=== PATIENT | female | born 1995 | race Caucasian/White ===

== ENCOUNTER 2021-09-17 03:10 | Emergency (ER) | payer OTHER ==
[~2021-09-17] VITALS: Ht 157.5 cm; Wt 102.7 kg
[2021-09-17] MEDS ORDERED: IOHEXOL 350 MG/ML 100 ML VIAL. IV ONE (03:45)
[2021-09-17] MEDS ORDERED: IV NORMAL SALINE 500ML 500 ML IV ONE (03:45)
[2021-09-17 03:48] LABS: BASO # 0.1 x10^3/uL (0.0-0.2); BASO % 1 % (0-3); EOS % 1 % (0-3); HEMOGLOBIN 14.1 g/dL (12.0-15.5); LYMPH # 0.4 x10^3/uL (1.0-4.8); LYMPH % 6 % (24-48); MEAN CORPUSCULAR HEMOGLOBIN 30 pg (25-35); MEAN CORPUSCULAR HGB CONC 35 g/dL (31-37); MEAN CORPUSCULAR VOLUME 86 fL (79-100); MONO % 14 % (0-9); NEUT # 5.6 x10^3uL (1.8-7.7); NEUT % 78 % (31-73); PLATELET COUNT 249 x10^3/uL (140-400); RED BLOOD COUNT 4.66 x10^6/uL (3.50-5.40); RED CELL DISTRIBUTION WIDTH 13.1 % (11.5-14.5); WHITE BLOOD COUNT 7.2 x10^3/uL (4.0-11.0)
--- NOTE | 2021-09-17 03:50 | PHYS DOC ---
Past History Past Medical History: No Pertinent History (PEBBLES YOO MD) Past Surgical History: (PEBBLES YOO MD) Alcohol Use: Rarely Drug Use: None (PEBBLES YOO MD) General Adult EDM: Chief Complaint: DIZZY/LIGHT HEADED HPI: HPI: Patient is a 26-year-old female coming in for chest tightness and lightheadedness. Patient states that it started when she was at work about 12 hours prior to arrival, patient was sitting in a meeting at work when it started. Patient states that prior to that she had had some cramping in her ri ght calf. Patient had a right ankle surgery about 6 months ago. Patient denies any medical history. She reports that she otherwise has been feeling well prior to the sudden onset of symptoms. Denies any stimulators. States her p.o. intake has been good. Denies any vomiting or diarrhea. (PEBBLES YOO MD) Review of Systems: Review of Systems: All other systems within normal limits except for as noted in the HPI (PEBBLES YOO MD) Current Medications: Current Meds: Current Medications Medications (Trade) Dose Ordered Sig/Jaret Start Time Stop Time Status Last Admin Dose Admin Sodium Chloride 500 ml @ 500 mls/hr 1X ONCE 09/17/21 03:45 09/17/21 04:44 (PEBBLES YOO MD) Allergies: Allergies: Allergies Coded Allergies Type Severity Reaction Last Updated Verified No Known Drug Allergies 07/02/16 No (PEBBLES YOO MD) Physical Exam: PE: Constitutional: Well developed, well nourished, no acute distress, non-toxic appearance. [] HENT: Normocephalic, atraumatic, bilateral external ears normal, nose normal. [] Eyes: PERRLA, conjunctiva normal, no discharge. [] Neck: No rigidity, supple, no stridor. [] Cardiovascular: Tachycardic, regular rhythm, brisk cap refill. Orthostatic vital signs [] Lungs & Thorax: Non labored symmetric respirations, no tachypnea or respiratory distress [] Abdomen: Soft, nondistended. Skin: Warm, dry, no erythema, no rash. [] Back: Unremarkable Extremities: No deformities, range of motion grossly intact, no lower extremity edema [] Neurologic: Alert and oriented X 3, no focal deficits noted. [] Psychologic: Affect normal, judgement normal, mood normal. [] (PEBBLES YOO MD) Current Patient Data: Vital Signs: Vital Signs Date Time Temp Pulse Resp B/P (MAP) Pulse Ox O2 Delivery O2 Flow Rate FiO2 09/17/21 03:38 101.4 95 17 132/82 (99) 98 Room Air 98.0 (PEBBLES YOO MD) EKG: EKG: Sinus tachycardia, heart rate 133, nonspecific changes which is RSR prime in lead I concerning for right heart strain [] (PEBBLES YOO MD) Radiology/Procedures: Radiology/Procedures: CT angio done, does not show any pneumonia or pulmonary embolism however there are limitations due to suboptimal contrast bolus [] (PEBBLES YOO MD) Heart Score: C/O Chest Pain: Yes HEART Score for Chest Pain: HEART Score for Chest Pain Response (Comments) Value History Slighlty/Non-Suspicious 0 ECG Nonspecific Repolarizatio 1 Age < 45 0 Risk Factors 1 or 2 Risk Factors 1 Troponin < Normal Limit 0 Total 2 Risk Factors: Risk Factors: DM, Current or recent (<one month) smoker, HTN, HLP, family history of CAD, obesity. Risk Scores: Score 0 - 3: 2.5% MACE over next 6 weeks - Discharge Home Score 4 - 6: 20.3% MACE over next 6 weeks - Admit for Clinical Observation Score 7 - 10: 72.7% MACE over next 6 weeks - Early Invasive Strategies (PEBBLES YOO MD) Course & Med Decision Making: Course & Med Decision Making Pertinent Labs and Imaging studies reviewed. (See chart for details) [] (PEBBLES YOO MD) Course & Med Decision Making Addendum by Dr. Jose Coreas at 0748: I took over care of patient from Dr. Reginaldo suh at 0600. I followed up with the patient's second troponin level which was normal. Patient given an additional liter of IV normal saline. Patient's heart rate has significantly improved after additional fluid administration. The patient was found to be positive for COVID-19. This appears to be the cause of the patient's current symptoms. The patient is in stable condition at this time and is appropriate for discharge. Given onset of symptoms yesterday, I have recommended that the patient remain in home quarantine and to continue supportive care measures including oral hydration, rest, and treatment of symptoms with [id number] medications as needed. The patient will need to remain in home quarantine for a minimum of 4 more days, then the patient may return to work after that time if fever free and acute symptoms have resolved but will need to wear a mask until a total of 10 days from onset of symptoms. Recommend follow-up with primary doctor in 1 week for reevaluation and recommend return to the emergency department for any worsening symptoms. Patient voiced understanding and in agreement with treatment plan. (JOSE COREAS MD) Dragon Disclaimer: Dragon Disclaimer: This electronic medical record was generated, in whole or in part, using a voice recognition dictation system. (PEBBLES YOO MD) Departure Departure: Impression: Primary Impression: COVID Disposition: HOME / SELF CARE / HOMELESS Condition: STABLE Referrals: PCP,UNKNOWN (PCP) Additional Instructions: You have been tested for or diagnosed with COVID-19. It is an infection caused by a new type of coronavirus. COVID-19 will cause cold-like or mild flu symptoms in most. It can cause more severe symptoms like problems breathing in some. There is no treatment for COVID-19. The body will clear the infection over time. Self-care will help to ease discomfort. Steps to Take: Self-Care Rest as needed. Healthy habits may help you feel better. Steps include: Choose healthy foods including fruits and vegetables. Drink water throughout the day. Get plenty of sleep each night. If you smoke, try to quit. It may ease breathing. Avoid alcohol. Keep Others Healthy The virus can spread to others. Droplets are released every time you sneeze or cough. The droplets can get into the mouth, nose, or eyes of people near you and lead to infection. To lower the chances of spreading COVID-19 to others: Stay at home until your doctor has said it is safe to leave. If you tested positive this will mean staying isolated until both of the following are true: At least 7 days have passed since the start of illness. You are free of fever for at least 72 hours without the use of medicine. During this time: - Avoid public areas, events, or transportation. Do not return to work or school until your doctor has said it is safe to do so. - Call ahead if you need to go to a medical center. Let them know you may have COVID-19. It will help them guide you where to go. They may also ask you to wear a facemask when you come to the office. - If you call for emergency medical services, let them know you may have COVID- 19. While at home: - Try to avoid close contact with others. Stay about 6 feet away. - If possible, spend most of your time in a separate room from others. - Use a face mask if you will be in close contact with others such as sharing a room or vehicle. - Have someone wipe down common surfaces in the home. Use household health care sanitary technician every day on areas like doorknobs, counters, or sinks. - Cough or sneeze into a tissue. Throw the tissue away right after use. If a tissue is not available, cough or sneeze into your elbow. - Wash your hands often. Wash them after sneezing or coughing. Use soap and water and wash for at least 20 seconds. Alcohol based hand grave cleaner can be used if soap and water is not available. - Do not prepare food for others. Avoid sharing personal items like forks, spoons, or toothbrushes. - Avoid close contact with pets while you are sick. There is no evidence of the virus passing to pets. This is a safety step until more is known about this virus. Isolation can be frustrating. Social interaction can help. Keep in touch with friends and family through phone and tech options. You can still interact with others in your home, just keep a safe distance of about 6 feet. Follow-up: Your doctors office will check in with you to see if there are any changes in your health. You may be asked to keep track of symptoms to share with them. They will also let you know when you are clear to be in public again. Problems to Look Out For: Contact your doctor if your recovery is not going as you expect. Get emergency care if you have problems such as: - Trouble breathing - Nonstop chest pain or pressure - Changes in awareness, confusion, or problems waking - Lips or face have bluish color - Worsening of symptoms If you think you have an emergency, call for emergency medical services right away. As taken from [facility] PEBBLES YOO MD September 17, 2021 03:49 JOSE COREAS MD September 17, 2021 07:51
[2021-09-17] MEDS ORDERED: CONTRAST GIVEN. MC PRN (04:00)
[2021-09-17 04:03] LABS: CALCIUM 9.1 mg/dL (8.5-10.1); CREATININE 0.8 mg/dL (0.6-1.0); POTASSIUM 3.7 mmol/L (3.5-5.1)
[2021-09-17 04:08] LABS: PREG TEST PT QUAL NEGATIVE (NEG)
[2021-09-17 04:10] LABS: ALBUMIN/GLOBULIN RATIO 1.2 (1.0-1.7); MAGNESIUM 1.8 mg/dL (1.8-2.4); PHOSPHORUS 2.4 mg/dL (2.6-4.7); TOTAL BILIRUBIN 0.6 mg/dL (0.2-1.0); TOTAL PROTEIN 7.4 g/dL (6.4-8.2)
[2021-09-17] MEDS ORDERED: ACETAMINOPHEN 500 MG TABLET PO ONE (04:45)
[2021-09-17 04:51] LABS: AMPHETAMINE/METHAMPHETAMINE NEG (NEG); BARBITURATES NEG (NEG); BENZODIAZEPINES NEG (NEG); CANNABINOIDS NEG (NEG); COCAINE NEG (NEG); METHADONE NEG (NEG); OPIATES NEG (NEG); PHENCYCLIDINE NEG (NEG)
[2021-09-17 04:56] LABS: BACTERIA,URINE 0 /HPF (0-FEW); CLARITY,URINE CLEAR; COLOR,URINE YELLOW; GLUCOSE,URINE NEG (NEG); NITRITE,URINE NEG (NEG); UROBILINOGEN,URINE 0.2 mg/dL (0.2 mg/dL); WBC,URINE OCC /HPF (0-4)
[2021-09-17 04:57] LABS: SQUAMOUS EPITHELIAL CELL,UR MOD /LPF
[2021-09-17] MEDS ORDERED: IV NORMAL SALINE 1,000ML 1,000 ML IV ONE ×2 (05:00→06:30)
[2021-09-17 05:33] LABS: INFLUENZA A PATIENT NEGATIVE (NEGATIVE); INFLUENZA B PATIENT NEGATIVE (NEGATIVE)
[2021-09-17] MEDS ORDERED: KETOROLAC 15 MG/ML VIAL. IVP ONE (06:00)
[2021-09-17 07:42] VITALS: BP 113/70
--- NOTE | 2021-09-17 09:42 | RAD ---
PQRS Compliance Statement: One or more of the following individualized dose reduction techniques were utilized for this examinat ion: 1. Automated exposure control 2. Adjustment of the mA and/or kV according to patient size 3. Use of iterative reconstruction technique Thorax\S\PE_CHEST (Adult) 09/17/2021 4:00 AM INDICATION: Chest pain, shortness of air. Dizziness COMPARISON: None available TECHNIQUE: Axial CT images of the chest were obtained after the intravenous administration of nonioni c contrast. Coronal and sagittal reformats are provided. Maximum intensity projection images of the t horacic vasculature are provided. FINDINGS: The thyroid gland is normal in appearance. There are no pathologically enlarged axillary, mediastinal or hilar lymph nodes. The heart size is within normal limits. No significant pericardial effusion. T horacic aorta is normal in course and caliber. There is suboptimal opacification of the pulmonary arterial system. There there are no filling defect s within the pulmonary arterial system to suggest acute or chronic pulmonary embolus. There are no suspicious solid noncalcified pulmonary nodules. There are no pulmonary infiltrates. The re are no pleural effusions. No pulmonary vascular congestion or pneumothorax. Visualized portions of the upper abdomen are within normal limits. No suspicious osseous lesions are visualized. IMPRESSION: There is no evidence for acute or chronic pulmonary embolism given limitations secondary to suboptima l contrast bolus. Electronically signed by: Eda Murdock MD (09/17/2021 4:36 AM) [facility]
== END 2021-09-17 08:00 | disposition home or self-care (01) ==
LOC: ER 03:10
DX: U07.1 COVID-19 (principal); R07.89 Other chest pain; R42 Dizziness and giddiness; Z98.890 Other specified postprocedural states
CPT/HCPCS: 36415; 71275; 80053; 80307; 81001; 81025; 83605; 83690; 83735; 83880; 84100; 84484; 84703; 85025; 85379; 85610; 87428; 93005; 96361; 96374; 99285; C9803; J1885; J7030; J7040; Q9967; U0003